=== PATIENT | female | born 1975 ===

== ENCOUNTER 2020-09-01 12:10 | Emergency (ER) | payer SELFPAY ==
[~2020-09-01] VITALS: Ht 167.6 cm; Wt 57.1 kg
[2020-09-01 12:17] VITALS: BP 137/95
--- NOTE | 2020-09-01 13:02 | NUR ---
PT REPORTS, "IT FEELS LIKE SOMETHING POPPED" WHILE DRIVING, IN SEVERE PAIN. LYING ON R SIDE IN GURNEY, DOESN'T WANT TO MOVE NECK.
[2020-09-01] MEDS ORDERED: CYCL10TA2 PO (13:07)
[2020-09-01] MEDS ORDERED: KETOROLAC 30 MG/1 ML ONE (13:50)
[2020-09-01] MEDS ORDERED: METHOCARBAMOL 750 MG TABLET ONE ×2 (13:50)
[2020-09-01] MEDS ORDERED: KETOROLAC 30 MG/1 ML IVPush ONE (14:00)
[2020-09-01] MEDS ORDERED: SODIUM CHLORIDE FLUSH 10ML SYR IVF ONE (14:00)
[2020-09-01] MEDS ORDERED: METHOCARBAMOL 750 MG TABLET PO ONE (14:00)
--- NOTE | 2020-09-01 14:03 | NUR ---
PT MEDICATED PER ORDERS. STILL MOANING/CRYING D/T PAIN. UNDERSTANDS POC.
[2020-09-01] MEDS ORDERED: ONDANSETRON 2MG/ML, 2ML ONE (14:06)
--- NOTE | 2020-09-01 14:09 | NUR ---
PT C/O FEELING "WOOZY". ERP NOTIFIED, MEDICATED WITH ZOFRAN PER ORDERS. PT TO MRI VIA [facility].
[2020-09-01] MEDS ORDERED: ONDANSETRON 2MG/ML, 2ML IVPush ONE (14:30)
[2020-09-01] MEDS ORDERED: GADOTERATE 7.5 MMOL/15ML SYR ONE (14:35)
--- NOTE | 2020-09-01 15:30 | NUR ---
PT RESTING IN GURNEY WITH EYES CLOSED, BREATHING WNL. NO S/S OF DISTRESS. MRI PENDING.
--- NOTE | 2020-09-01 16:27 | NUR ---
Mic cunningham in [facility] - 09/01/20 at 1628 by MO MARÍA AND LAB AT .
--- NOTE | 2020-09-01 16:27 | NUR ---
Mic cunningham in ED - 09/01/20 at 1628 by MO PT AMBULATED TO BR WITH MOTHER. INSTRUCTED ON CLEAN CATCH URINE SAMPLE.
--- NOTE | 2020-09-01 16:37 | NUR ---
ERP WAS IN FOR RECHECK.
--- NOTE | 2020-09-01 16:54 | NUR ---
D/C INSTRUCTIONS, MEDS & F/U APPT RV'WD WITH PT, SHE VERBALIZES UNDERSTANDING. RX GIVEN X1. PT AMBULATED OUT OF ED WITHOUT DIFFICULTY, STATES FAMILY WILL PICK HER UP.
== END 2020-09-01 17:01 | disposition home or self-care (01) ==
LOC: ED 16:55
DX: S16.1XXA Strain of muscle, fascia and tendon at neck level, initial encounter (principal); X58.XXXA Exposure to other specified factors, initial encounter; Y93.89 Activity, other specified; Y92.89 Other specified places as the place of occurrence of the external cause; Y99.8 Other external cause status
CPT/HCPCS: 72156; 93005; 96374; 96375; 99284; A9575; J1885; J2405